=== PATIENT | female | born 1950 | race Caucasian/White ===

== ENCOUNTER 2019-02-25 15:00 | Emergency (ER) | payer MEDICARE ==
[2019-02-25 16:23] LABS: ABS Eosinophils 0.1 10^3/ul (0-0.6); ABS Lymphocytes 2.3 10^3/ul (1.0-4.8); ABS Monocytes 0.5 10^3/ul (0-0.8); ABS Neutrophils 3.5 10^3/ul (1.5-7.7); Eosinophil % 1.2 %; Hematocrit 39 % (35-47); Hemoglobin 13.1 g/dL (12.0-16.0); Lymphocyte % 35.4 %; Mean Corpuscular HGB Conc 34 g/dL (31-36); Mean Corpuscular Hemoglobin 30 pg (27-31); Mean Corpuscular Volume 90 fL (80-97); Mean Platelet Volume 7.6 fL (7.4-10.4); Platelet Count 300 10^3/uL (150-450); Red Blood Count 4.31 10^6 /uL (3.70-4.87); Red Cell Distribution Width 13 % (10-15); White Blood Count 6.4 10^3/uL (3.5-10.8)
[2019-02-25 16:31] LABS: Activated Partial Thrombo Time 37.8 seconds (26.0-38.0); INR 0.97 (0.82-1.09)
[2019-02-25 16:41] LABS: Albumin 4.6 g/dL (3.2-5.2); Albumin/Globulin Ratio 1.5 (1-3); Calcium 10.2 mg/dL (8.6-10.3); EGFR African American 99.7 (>60); EGFR Non-African American 82.4 (>60); Potassium 3.3 mmol/L (3.5-5.0); Total Bilirubin 0.3 mg/dL (0.2-1.0); Total Protein 7.6 g/dL (6.4-8.9)
--- NOTE | 2019-02-25 16:48 | ED ---
Lower Extremity - HPI Summary HPI Summary: This pt is a 68 y/o female, accompanied by , [facility]/o right calf with intermittent hot sensation for the past 1 week. Pt reports she feels a hot sensation from her right ankle up to her right knee. She notes this occurs mostly when she moves around or ambulates. Denies any calf pain or leg pain. Pt denies her right leg is hot to touch. She reports hx of cellulitis and knows what it looks like and denies cellulitis symptoms to her right calf today. Denies fever, chills, sweats. She does note her right toe gets dark purple intermittently. Denies erythema of eyes, sore throat, chest pain, SOB, cough, abd pain, nausea, vomiting, dysuria, hematuria, myalgia, edema, rash, or dizziness. Pt has hx of herniated L5 disc and notes she has chronic left leg numbness half the time. PMHx of HTN for which she takes metoprolol. Denies hx of DM. Denies tobacco use. Her PCP is CORETTA Chambers, but is looking to switch to Dr. Kapoor. - History of Current Complaint Chief Complaint: EDExtremityLower Stated Complaint: RIGHT LEG- FEELS HOT PER PT Time Seen by Provider: 02/25/19 15:54 Hx Obtained From: Patient Mechanism Of Injury: Other - No known trauma Onset of Pain: Days - 1 week Onset/Duration: Weeks - 1 Severity Currently: None Pain Intensity: 0 Pain Scale Used: 0-10 Numeric Timing: Lasting Weeks - 1 Location: Is Discrete @ - right calf Associated Signs And Symptoms: Negative: Swelling, Redness, Fever, Knee Pain Aggravating Factor(s): Ambulation Alleviating Factor(s): Rest Able to Bear Weight: Yes - Allergies/Home Medications Allergies/Adverse Reactions: Allergies Allergy/AdvReac Type Severity Reaction Status Date / Time No Known Allergies Allergy Verified 02/25/19 15:09 Home Medications: Home Medications Albuterol HFA INHALER* [Ventolin HFA Inhaler*] 2 puff INH Q4H PRN 02/25/19 [ History Confirmed 02/25/19] Aspirin EC TAB* [Ecotrin EC Low Dose 81 MG*] 81 mg PO DAILY 02/25/19 [History Confirmed 02/25/19] C,E,Zinc,Copper 11/Cfqeh2y/Lut [Ocuvite Adult 50 Plus Softgel] 1 each PO DAILY 02/25/19 [History Confirmed 02/25/19] Calcium Carbonate [Calcium] 500 mg PO DAILY 02/25/19 [History Confirmed 02/25/19 ] Cetirizine* [ZyrTEC 10 MG TAB*] 10 mg PO DAILY 02/25/19 [History Confirmed 02/25] Cholecalciferol CAP/TAB(NF) [Vitamin D3 CAP/TAB (NF)] 5,000 unit PO DAILY [History Confirmed 02/25/19] Citalopram TAB* [CeleXA TAB*] 10 mg PO DAILY 02/25/19 [History Confirmed ] Fenofibrate(NF) [Tricor(NF)] 145 mg PO DAILY 02/25/19 [History Confirmed ] Fluticasone NASAL SPRAY 50MCG* [Flonase NASAL SPRAY 50MCG*] 2 spray BOTH NARES DAILY 02/25/19 [History Confirmed 02/25/19] Hydrochlorothiazide TAB* [Hydrodiuril TAB*] 25 mg PO DAILY 02/25/19 [History Confirmed 02/25/19] Iron 65 mg PO DAILY 02/25/19 [History Confirmed 02/25/19] Melatonin (NF) 1 tab PO BEDTIME PRN 02/25/19 [History Confirmed 02/25/19] Metoprolol Succinate XL TAB* [Toprol XL TAB*] 50 mg PO DAILY 02/25/19 [History Confirmed 02/25/19] Montelukast Sodium TAB* [Singulair TAB*] 10 mg PO DAILY 02/25/19 [History Confirmed 02/25/19] Multivitamins/Minerals TAB* [Theragran/minerals TAB*] 1 tab PO DAILY 02/25/19 [ History Confirmed 02/25/19] Vitamin B Complex/Folic Acid [Super B Maxi Complex Caplet] 0.4 mg PO DAILY 02/25 [History Confirmed 02/25/19] PMH/Surg Hx/FS Hx/Imm Hx Endocrine/Hematology History: Denies: Hx Diabetes, Hx Thyroid Disease Cardiovascular History: Reports: Hx Hypertension - on meds Denies: Hx Pacemaker/ICD Respiratory History: Denies: Hx Asthma, Hx Chronic Obstructive Pulmonary Disease (COPD) GI History: Denies: Hx Ulcer Sensory History: Denies: Hx Hearing Aid Psychiatric History: Denies: Hx Panic Disorder - Cancer History Hx Chemotherapy: No Hx Radiation Therapy: No - Surgical History Surgery Procedure, Year, and Place: TUBALIGATION, bladder lift, hysterectomy, breast reduction, bladder sling [facility], ganglion cyst removed from finger. Infectious Disease History: No Infectious Disease History: Denies: Hx Hepatitis, Hx Human Immunodeficiency Virus (HIV), Traveled Outside the [place] in Last 30 Days - Family History Known Family History: Positive: Cardiac Disease, Hypertension - Social History Alcohol Use: Rare Substance Use Type: Reports: None Smoking Status (MU): Never Smoked Tobacco Review of Systems Negative: Fever, Chills Negative: Erythema Negative: Sore Throat Negative: Chest Pain Negative: Shortness Of Breath, Cough Negative: Abdominal Pain, Vomiting, Nausea Negative: dysuria, hematuria Musculoskeletal: Other - POSITIVE: right calf with hot sensation. Negative: Myalgia, Edema, Other - NEGATIVE: right calf pain Skin: Other - POSITIVE: color change on right toe Negative: Rash Neurological: Other - NEGATIVE: dizziness Positive: Numbness - chronic left leg All Other Systems Reviewed And Are Negative: Yes Physical Exam - Summary Physical Exam Summary: Constitutional: Well-developed, Well-nourished, Alert. (-) Distressed Skin: Warm, Dry. No cyanosis. Skin in feet is mildly cool bilaterally. HENT: Normocephalic; Atraumatic Eyes: Conjunctiva normal Neck: Musculoskeletal ROM normal neck. (-) JVD, (-) Stridor, (-) Tracheal deviation Cardio: Rhythm regular, rate normal, Heart sounds normal; Intact distal pulses; The pedal pulses are 2+ and symmetric. Radial pulses are 2+ and symmetric. (-) Murmur Pulmonary/Chest wall: Effort normal. (-) Respiratory distress, (-) Wheezes, (-) Rales Abd: Soft, (-) Tenderness, (-) Distension, (-) Guarding, (-) Rebound Musculoskeletal: (-) Edema. Capillary refill is less than 2 seconds in lower extremities. Bilateral pedal pulses are intact. Lymph: (-) Cervical adenopathy Neuro: Alert, Oriented x3 Psych: Mood and affect Normal Triage Information Reviewed: Yes Vital Signs On Initial Exam: Initial Vitals Temp Pulse Resp BP Pulse Ox 98.1 F 77 18 161/80 95 02/25/19 15:04 02/25/19 15:04 02/25/19 15:04 02/25/19 15:04 02/25/19 15:04 Vital Signs Reviewed: Yes Procedures - Sedation Patient Received Moderate/Deep Sedation with Procedure: No Diagnostics - Vital Signs Vital Signs Temp Pulse Resp BP Pulse Ox 02/25/19 15:04 98.1 F 77 18 161/80 95 - Laboratory Lab Results: Lab Results 02/25/19 02/25/19 02/25/19 Range/Units 16:17 16:17 16:17 WBC 6.4 (3.5-10.8) 10^3/uL RBC 4.31 (3.70-4.87) 10^6 /uL Hgb 13.1 (12.0-16.0) g/dL Hct 39 (35-47) % MCV 90 (80-97) fL MCH 30 (27-31) pg MCHC 34 (31-36) g/dL RDW 13 (10-15) % Plt Count 300 (150-450) 10^3/uL MPV 7.6 (7.4-10.4) fL Neut % (Auto) 54.9 % Lymph % (Auto) 35.4 % [place] % (Auto) 7.9 % Eos % (Auto) 1.2 % Baso % (Auto) 0.6 % Absolute Neuts (auto) 3.5 (1.5-7.7) 10^3/ul Absolute Lymphs (auto) 2.3 (1.0-4.8) 10^3/ul Absolute Monos (auto) 0.5 (0-0.8) 10^3/ul Absolute Eos (auto) 0.1 (0-0.6) 10^3/ul Absolute Basos (auto) 0.0 (0-0.2) 10^3/ul Absolute Nucleated RBC 0.0 10^3/ul Nucleated RBC % 0.0 INR (Anticoag Therapy) 0.97 (0.82-1.09) APTT 37.8 (26.0-38.0) seconds Sodium 138 (135-145) mmol/L Potassium 3.3 L (3.5-5.0) mmol/L Chloride 102 (101-111) mmol/L Carbon Dioxide 31 (22-32) mmol/L Anion Gap 5 (2-11) mmol/L BUN 27 H (6-24) mg/dL Creatinine 0.71 (0.51-0.95) mg/dL Est GFR ( Amer) 99.7 (>60) Est GFR (Non-Af Amer) 82.4 (>60) BUN/Creatinine Ratio 38.0 H (8-20) Glucose 111 H (70-100) mg/dL Calcium 10.2 (8.6-10.3) mg/dL Total Bilirubin 0.30 (0.2-1.0) mg/dL AST 21 (13-39) U/L ALT 33 (7-52) U/L Alkaline Phosphatase 50 (34-104) U/L Total Protein 7.6 (6.4-8.9) g/dL Albumin 4.6 (3.2-5.2) g/dL Globulin 3.0 (2-4) g/dL Albumin/Globulin Ratio 1.5 (1-3) Result Diagrams: 02/25/19 16:17 02/25/19 16:17 Lab Statement: Any lab studies that have been ordered have been reviewed, and results considered in the medical decision making process. - Ultrasound No standard instances Ultrasound Interpretation Completed By: Radiologist Summary of Ultrasound Findings: Right lower extremity US IMPRESSION: No right lower extremity deep vein thrombosis. Dr. Hackett has reviewed this report. Lower Extremity Course/Dx - Course Assessment/Plan: Pt is a 68 y/o female presenting to [facility] c/o right calf with intermittent hot sensation for the past 1 week. Pt reports she feels a hot sensation from her right ankle up to her right knee. She notes this occurs mostly when she moves around or ambulates. Denies any calf pain or leg pain. Pt denies her right leg is hot to touch. She reports hx of cellulitis and knows what it looks like and denies cellulitis symptoms to her right calf today. Denies fever, chills, sweats. She does note her right toe gets dark purple intermittently. On exam pt has no cyanosis. Skin in feet is mildly cool bilaterally. Capillary refill is less than 2 seconds in lower extremities. Bilateral pedal pulses are intact. Lab results are unremarkable. Right lower extremity US shows no right lower extremity deep vein thrombosis. Pt likely will require arterial doppler studies and ankle brachial index. Pt will be discharged home with follow up from Dr. Olmstead, vascular surgeon. She was instructed to return to the ED for any worsening or new symptoms. - Diagnoses Provider Diagnoses: Claudication Discharge ED - Sign-Out/Discharge Documenting (check all that apply): Patient Departure - Discharge home - Discharge Plan Condition: Stable Disposition: HOME Referrals: Session Jonathan KIKR [Primary Care Provider] - Héctor Olmstead MD [Medical Doctor] - Additional Instructions: Follow up with Dr. Olmstead, vascular surgeon, in 2-3 days. RETURN TO THE EMERGENCY DEPARTMENT FOR CHANGING OR WORSENING SYMPTOMS. - Attestation Statements Document Initiated by Scribe: Yes Documenting Scribe: Diana Pham Provider For Whom Scribe is Documenting (Include Credential): Rafael Hackett MD Scribe Attestation: Diana Trevino, scribed for Rafael Hackett MD on 02/25/19 at 1718. Status of Scribe Document: Ready
[2019-02-25 17:16] VITALS: BP 133/71
== END 2019-02-25 17:18 | disposition home or self-care (01) ==
LOC: ED 15:00
DX: I73.9 Peripheral vascular disease, unspecified (principal); I10 Essential (primary) hypertension; Z90.710 Acquired absence of both cervix and uterus; Z79.82 Long term (current) use of aspirin; Z79.899 Other long term (current) drug therapy
CPT/HCPCS: 36415; 80053; 85025; 85610; 85730; 99282